=== PATIENT | male | born 1965 | race Caucasian/White ===

== ENCOUNTER 2021-04-06 16:11 | Emergency (ER) | payer SELFPAY ==
[~2021-04-06] VITALS: Ht 182.9 cm; Wt 77.1 kg
[2021-04-06 16:11] VITALS: BP 141/91
--- NOTE | 2021-04-06 16:15 | NUR ---
PT TO WAIT IN LOBBY.
--- NOTE | 2021-04-06 16:39 | NUR ---
PT TAKEN TO XR. 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
--- NOTE | 2021-04-06 16:51 | NUR ---
RIAN DIAZ WITH PT FOR FURTHER EVALUATION.
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
[2021-04-06] MEDS ORDERED: LIDOCAINE 2% 1000 MG/50 ML VIAL INJ ONE (16:55)
[2021-04-06] MEDS ORDERED: LIDOCAINE MPF 1% 5 ML ONE (17:08)
--- NOTE | 2021-04-06 17:08 | NUR ---
PT MOVED TO BED 9.
[2021-04-06] MEDS ORDERED: LIDOCAINE MPF 1% 10 MG/ML VIAL INJ ONE ×2 (17:10)
--- NOTE | 2021-04-06 17:26 | NUR ---
RIAN DIAZ WITH PT FOR PROCEDURE.
[2021-04-06] MEDS ORDERED: IBUP-1842 PO ×2 (17:37→18:04)
[2021-04-06] MEDS ORDERED: BACI1PAC6 TP ×2 (17:39→18:04)
--- NOTE | 2021-04-06 17:56 | NUR ---
PT LAC CLEANED AND IRRIGATED WITH NORMAL SALINE AND DRESSED WITH NON-ADHERENT GAUZE PAD AND WRAPPED WITH 3" GAUZE ROLL.
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
[2021-04-06 17:58] VITALS: BP 138/89
== END 2021-04-06 17:57 | disposition home or self-care (01) ==
LOC: MED 16:11
DX: S41.111A Laceration without foreign body of right upper arm, initial encounter (principal); S46.811A Strain of other muscles, fascia and tendons at shoulder and upper arm level, right arm, initial encounter; S20.212A Contusion of left front wall of thorax, initial encounter; V49.60XA Unspecified car occupant injured in collision with unspecified motor vehicles in traffic accident, initial encounter; Y93.89 Activity, other specified; Y92.89 Other specified places as the place of occurrence of the external cause; Y99.8 Other external cause status
CPT/HCPCS: 12002; 71045; 71100; 73130; 99284; J2001